=== PATIENT | female | born 1950 | race Caucasian/White ===

== ENCOUNTER 2019-11-25 11:00 | Inpatient (IN) | payer OTHER ==
[~2019-11-25] VITALS: Ht 162.6 cm; Wt 83.5 kg
[~2019-11-25 11:00] MED LIST: ANTIVERT25 M1 PO; LIPOFLAVOVIT CA1 TAB PO; SYNTHROID150 MCG
[2019-11-26] MEDS ORDERED: ATORVASTATIN CA40 MG PO (08:41)
[2019-11-26] MEDS ORDERED: SYNTHROID112 MCG PO (08:41)
== END 2019-12-04 14:13 | disposition home or self-care (01) | DRG 331 ==
LOC: O/R 12-02 06:10 → SURG 12-02 06:10 → SURH 12-02 10:15 → SURG 12-02 12:03
PROVIDERS: ADMIT Colon & Rectal Surgery; ATTEND Colon & Rectal Surgery
PROC: 0DBF4ZZ Excision of Right Large Intestine, Percutaneous Endoscopic Approach (ICD-10-PCS; principal; 2019-12-02 10:15)
DX: C18.2 Malignant neoplasm of ascending colon (principal); E03.9 Hypothyroidism, unspecified; I49.1 Atrial premature depolarization; E78.00 Pure hypercholesterolemia, unspecified; D64.9 Anemia, unspecified

== ENCOUNTER 2019-12-31 08:40 | Outpatient (CLI) | payer OTHER ==
[~2019-12-31 08:40] MED LIST changes: +ATORVASTATIN CA40 MG PO; +SYNTHROID112 MCG PO
== END 2019-12-31 08:52 | disposition home or self-care (01) ==
LOC: NUCLEAR 08:40
PROVIDERS: ATTEND Internal Medicine Hematology & Oncology
DX: C18.0 Malignant neoplasm of cecum (principal); C77.2 Secondary and unspecified malignant neoplasm of intra-abdominal lymph nodes; I34.0 Nonrheumatic mitral (valve) insufficiency; I48.0 Paroxysmal atrial fibrillation
CPT/HCPCS: 78816; 93005; 93306; A9552

== ENCOUNTER 2020-01-20 07:20 | Day surgery (SDC) | payer OTHER | END 2020-01-20 13:10 | disposition home or self-care (01) | LOC: CIR.AMB 07:20 | PROVIDERS: ATTEND Colon & Rectal Surgery | DX: C18.2 Malignant neoplasm of ascending colon (principal); Z20.828 Contact with and (suspected) exposure to other viral communicable diseases | CPT/HCPCS: 36561; C1751 ==

== ENCOUNTER 2020-02-09 09:32 | Outpatient (CLI) | payer OTHER | END 2020-02-09 09:42 | disposition home or self-care (01) | LOC: TOM 09:32 | PROVIDERS: ATTEND Internal Medicine Hematology & Oncology | DX: C22.9 Malignant neoplasm of liver, not specified as primary or secondary (principal); C18.4 Malignant neoplasm of transverse colon | CPT/HCPCS: 74177; Q9965 ==

== ENCOUNTER 2020-12-02 06:00 | Day surgery (SDC) | payer OTHER | END 2020-12-02 13:25 | disposition home or self-care (01) | LOC: AMB-ENDOS 06:00 | PROVIDERS: ATTEND Colon & Rectal Surgery | DX: K62.89 Other specified diseases of anus and rectum (principal); K64.1 Second degree hemorrhoids; Z20.822 Contact with and (suspected) exposure to COVID-19 ==